=== PATIENT | male | born 1990 | race Caucasian/White ===

== ENCOUNTER 2021-06-21 02:55 | Emergency (ER) | payer OTHER ==
[~2021-06-21] VITALS: Ht 170.2 cm; Wt 90.7 kg
[2021-06-21] MEDS ORDERED: CEPHALEXIN MONOHYDRATE 500 MG CAPSULE PO ONE ×2 (03:08→03:30)
--- NOTE | 2021-06-21 03:08 | NUR ---
BIBS C/O LEFT LEG SWELLING AND REDNESS X2DAYS. PATIENT ALERT AND ORIENTED X3. AMBULATORY WITH NON LABORED BREATHING IN BED 02
[2021-06-21] MEDS ORDERED: CEPH500C2 PO (03:10)
[2021-06-21 03:22] VITALS: BP 120/80
--- NOTE | 2021-06-21 03:22 | NUR ---
Patient discharged to home in stable condition. Written and verbal after care instructions given. Patient verbalizes understanding of instruction.
== END 2021-06-21 03:23 | disposition home or self-care (01) ==
LOC: ER 02:58
DX: L03.116 Cellulitis of left lower limb (principal); J45.909 Unspecified asthma, uncomplicated